=== PATIENT | male | born 1995 | race African-American/Black ===

== ENCOUNTER 2019-12-27 12:23 | Emergency (ER) | payer OTHER ==
[~2019-12-27] VITALS: Ht 182.9 cm; Wt 78.8 kg
[2019-12-27 12:24] VITALS: BP 132/77
[2019-12-27 13:21] LABS: BASO % 0.8 % (0.0-1.0); EOS # 0.1 10^3/uL (0.0-0.5); EOS % 1.6 % (0.0-3.0); HEMATOCRIT 43.8 % (42.0-52.0); HEMOGLOBIN 13.6 g/dl (13.5-17.5); LYMPH # 1.6 10^3/uL (1.5-5.0); LYMPH % 42.7 % (24.0-44.0); MEAN CORPUSCULAR HEMOGLOBIN 26.6 pg (27.0-33.0); MEAN CORPUSCULAR HGB CONC 31.1 g/dl (32.0-36.5); MEAN CORPUSCULAR VOLUME 85.7 fl (80.0-96.0); MONO # 0.4 10^3/uL (0.0-0.8); MONO % 10.2 % (0.0-5.0); NEUTROPHILS # 1.7 10^3/uL (1.5-8.5); NEUTROPHILS % 44.4 % (36.0-66.0); PLATELET COUNT, AUTOMATED 214 10^3/uL (150-450); RED BLOOD COUNT 5.11 10^6/uL (4.30-6.10); WHITE BLOOD COUNT 3.7 10^3/uL (4.0-10.0)
[2019-12-27 13:50] LABS: MONO REFLEX EBV COMP NEGATIVE (NEGATIVE)
[2019-12-28 14:06] LABS: EBV AB TO NUCLEAR ANTIGEN >600.0 U/mL (0.0-17.9); EBV VIRAL CAPSID AG IgM <36.0 U/mL (0.0-35.9)
== END 2019-12-27 13:43 | disposition home or self-care (01) ==
LOC: M ED 12:23
DX: B34.9 Viral infection, unspecified (principal); R53.1 Weakness
CPT/HCPCS: 85025; 86308; 86664; 86665; 87486; 87581; 87633; 87798; 99283; U0002

== ENCOUNTER 2020-09-15 15:21 | Emergency (ER) | payer OTHER ==
[~2020-09-15] VITALS: Ht 180.3 cm; Wt 79.4 kg
[2020-09-15 15:23] VITALS: BP 138/61
== END 2020-09-15 17:11 | disposition home or self-care (01) ==
LOC: M ED 15:21
DX: Z20.822 Contact with and (suspected) exposure to COVID-19 (principal)
CPT/HCPCS: 99283; U0003